=== PATIENT | female | born 2005 | race Caucasian/White ===

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

== ENCOUNTER 2023-09-15 17:26 | Emergency (ER) | payer MEDICAID, SELFPAY ==
[2023-09-15 17:27] VITALS: BP 136/116; PULSE 87; RESP 18; TEMP 36.1; O2SAT 100; BMI 21.9
--- NOTE | 2023-09-15 17:44 | EX.ED.VIS.HA ---
HPI History of Present Illness Chief Complaint: Headache Informant: patient Onset/Context/Timing Onset: Days (5) Context: Gradual Timing: Continuous Quality -Headache: Positive for Similar Prior Headaches Location: Right side of head and left eye Worsened by: Nothing Relieved by: Nothing Associated Symptoms/Injury Associated Symptoms: Positive for Nausea and Visual Changes; Negative for Fever, Vomiting, Sore Throat, Sinus Pressure, Numbness, Tingling, Preceding Aura or Photophobia Narrative Narrative: Patient presents with a headache that has been getting worse over the past 5 days. Patient states it has been constant. Patient states it feels similar to prior migraine headaches. Patient states she has had a decrease in her vision because of the headaches. Patient states that is also consistent with prior migraine headaches. Patient states her pain is mainly on the right but goes into her left eye. Patient describes her pain as throbbing. Patient states nothing makes it better nothing makes it worse. Patient does admit to some tingling but denies any weakness. Patient admits to some nausea but denies any vomiting. [facility] Medical History 41 weeks gestation of Anemia affecting Encounter for induction of labor High risk teen Migraines Rh negative status during (spontaneous vaginal delivery) Tonsillectomy planned Home Medications cephalexin 500 mg capsule 500 mg PO Q6 #40 CAPSULES 10/27/22 [Rx Last Taken Unknown] Allergy/AdvReac Type Severity Reaction Status Date / Time No Known Allergies Allergy Verified 09/15/23 17:29 Surgical History [place] teeth extracted Social History Smoking Status: Former smoker ROS ROS ED Constitutional Constitutional ED: Denies chills or fever(s) Eyes Eyes: Reports change in vision; Denies blurry vision ENT ENT ED: Denies rhinorrhea or sore throat Cardiovascular Cardiovascular: Denies chest pain or palpitations Respiratory/Chest Respiratory/Chest: Denies cough or dyspnea Gastrointestinal Gastrointestinal: Reports nausea; Denies vomiting Genitourinary Genitourinary ED: Denies dysuria or hematuria Musculoskeletal Musculoskeletal: Denies back pain or neck pain Integumentary Denies abscess or rash Neurologic Neurologic: Reports headache(s); Denies weakness Allergic/Immunologic Allergic/Immunologic ED: Denies mouth swelling or urticaria EXAM Physical Exam Const Vital Signs: 09/15/23 17:27 09/15/23 19:22 09/15/23 19:30 Temperature 97 F L 97.9 F Temperature Source Temporal Pulse Rate 87 58 L 58 L Respiratory Rate 18 18 18 Blood Pressure 136/116 H 108/64 108/64 Blood Pressure Mean 122 78 78 Pulse Ox 100 98 100 Oxygen Delivery Method Room Air Room Air Positive well nourished and well developed General Appearance ED: well developed and NAD HEENT Reports normocephalic and moist mucous membranes atraumatic Neck supple, no meningeal signs and no JVD Resp normal respiratory effort and clear to auscultation bilaterally Cardio regular rate and regular rhythm GI non-tender and non-distended Extremity normal to inspection and full ROM Neuro oriented x3, CN's II-XII intact bilaterally and no sensory deficits noted Jem Coma Scale: document GCS findings Spontaneous Obeys Commands Oriented 15 Sensorium / Orientation: awake and alert Speech: speech normal Motor Exam: strength 5/5 throughout Psych mental status grossly normal MDM MDM MDM Narrative Medical decision making narrative: This is similar to patient's prior migraine headaches. Visual acuity will be obtained. Patient was given IV fluids, Reglan, and Benadryl. Treatment and Re-Evaluation Narrative: Visual acuity was 20/30 in the right eye, 20/50 in the left eye, and 20/50 with both eyes. Patient was feeling better on reevaluation. Patient was instructed to rest in a dark quiet room. Patient was instructed to drink plenty of fluids. Patient was instructed to follow-up with her primary care physician in 5 to 7 days. Patient understood and was agreeable with the plan. All questions were answered. Discharge Plan Triage Chief Complaint: Headache ED Provider: Keo Reich Dx/Rx/DC Orders Clinical Impression: Headache, migraine, Alteration in vision Instructions: ED, Migraine (Classical) Prescriptions: No Action cephalexin [cephalexin] 500 mg capsule 500 mg PO Q6 Qty: 40 0RF Primary Care Provider: Care Physician,No Primary Referrals: Adelfo Schmidt MD [Med Staff - [employer]] - 5-7 Days Care Physician,No Primary [Primary Care Provider] - Disposition Disposition: Home, Self Care
[2023-09-15] MEDS: 0.9% Normal Saline (1000mL) 1,000 ML 999 ML IV (17:59)
[2023-09-15] MEDS: DiphenhydrAMINE 50 MG/ML Syringe 25 MG IV (17:59)
[2023-09-15] MEDS: Metoclopramide 10 MG/2 ML Vial IV (17:59)
[2023-09-15 19:22] VITALS: BP 108/64; PULSE 58; RESP 18; O2SAT 98
[2023-09-15 19:30] VITALS: BP 108/64; PULSE 58; RESP 18; TEMP 36.6; O2SAT 100
== END 2023-09-15 19:39 | disposition home or self-care (01) ==
PROVIDERS: Emergency Provider Emergency Medicine; Visit Provider Emergency Medicine
DX: G43.909 Migraine, unspecified, not intractable, without status migrainosus (principal); Z87.891 Personal history of nicotine dependence; R11.0 Nausea; H53.8 Other visual disturbances
CPT/HCPCS: 96361; 96374; 96375; 99284; A4216

== ENCOUNTER 2023-11-04 18:49 | Emergency (ER) | payer MEDICAID, SELFPAY ==
[2023-11-04 18:49] VITALS: BP 96/65; PULSE 88; RESP 12; O2SAT 100
[2023-11-04 18:50] VITALS: BP 99/62; PULSE 92; RESP 12; TEMP 36.8; O2SAT 100; BMI 20.4
[2023-11-04 18:51] VITALS: BP 99/62; PULSE 92; RESP 12; TEMP 36.6; O2SAT 100
--- NOTE | 2023-11-04 19:15 | EX.ED.DYSGE1 ---
HPI History of Present Illness Chief Complaint: Abd Pain Detail of Chief Complaint: Fever and sore throat and occasional abdominal pain Informant: patient Narrative Narrative: Patient presents the emergency department complaint of fever and sore throat is her main complaint. Patient also states that she has had off-and-on abdominal pain for over a month. Currently she has no abdominal pain. She had a temperature of 102 at home today. She started having a sore throat last evening. Patient denies significant cough. She denies urinary symptoms. Patient tells me that she was in September of this year and then had some bleeding and passed some tissue and never followed up after her first appointment with [facility]. Patient continues to have some intermittent vaginal bleeding. [facility] Medical History 41 weeks gestation of Anemia affecting Encounter for induction of labor High risk teen Migraines Rh negative status during (spontaneous vaginal delivery) Tonsillectomy planned Home Medications ?Medication ?Instructions ?Recorded ?Last Taken ?Type sertraline 25 mg tablet 25 mg PO DAILY 11/04/23 Unknown History Allergy/AdvReac Type Severity Reaction Status Date / Time No Known Allergies Allergy Verified 11/04/23 18:49 Surgical History [place] teeth extracted Social History Smoking Status: Former smoker ROS ROS ED Review of Systems ROS Unobtainable: other Constitutional Constitutional ED: Reports fever(s) and lethargy; Denies chills, sweats or weight loss Eyes Eyes: Denies blurry vision, change in vision or diplopia ENT ENT ED: Reports sore throat; Denies rhinorrhea Cardiovascular Cardiovascular: Denies chest pain, orthopnea or racing heartbeat Respiratory/Chest Respiratory/Chest: Denies cough, dyspnea, dyspnea on exertion, orthopnea or sputum Gastrointestinal Gastrointestinal: Reports abdominal pain; Denies diarrhea, nausea or vomiting Genitourinary Genitourinary ED: Denies dysuria, hematuria or urinary frequency Musculoskeletal Musculoskeletal: Denies arthralgias, back pain, myalgias or neck pain Integumentary Denies abscess, Abrasions or rash Neurologic Neurologic: Denies headache(s) or weakness Psychiatric Psychiatric: Denies anxiety, depression or suicidal thoughts Endocrine Endocrinology: Denies polydipsia, polyphagia or polyuria Hematologic/Lymphatic Hematologic/Lymphatic: Denies easy bleeding, easy bruising or lymphadenopathy Allergic/Immunologic Allergic/Immunologic ED: Denies mouth swelling, tongue swelling or urticaria EXAM Physical Exam Const Vital Signs: 11/04/23 18:49 11/04/23 18:50 11/04/23 18:51 Temperature 98.2 F 97.8 F Temperature Source Temporal Oral Pulse Rate 88 92 92 Respiratory Rate 12 12 12 Blood Pressure 96/65 99/62 99/62 Blood Pressure Mean 75 74 74 Pulse Ox 100 100 100 Oxygen Delivery Method Room Air Room Air 11/04/23 20:00 11/04/23 21:00 Temperature 97.6 F L 97.6 F L Temperature Source Oral Oral Pulse Rate 87 85 Respiratory Rate 15 14 Blood Pressure 99/61 97/68 Blood Pressure Mean 73 77 Pulse Ox 99 99 Oxygen Delivery Method Room Air Room Air Positive well nourished and well developed General Appearance ED: well developed and NAD HEENT Reports TM's clear and moist mucous membranes HEENT Narrative: Mild pharyngeal erythema normocephalic and atraumatic; Negative for trauma or tenderness Tympanic Membrane ED: Yes TM's clear Eyes PERRL and EOMs intact bilaterally General Eye ED: Negative for pale conjunctiva or scleral icterus Neck no lymphadenopathy, supple and no JVD General: Negative for tenderness Chest Wall inspection of chest normal and palpation of chest normal Chest: Negative for tenderness Resp normal respiratory effort and clear to auscultation bilaterally Effort and Inspection: Negative for respiratory distress or pain with movement Auscultation: Negative for rhonchi, wheezes or diminished lung sounds Cardio regular rate, regular rhythm, S1 normal heart sound, S2 normal heart sound and no murmurs Peripheral Pulses: pulses 2+ throughout GI normal to inspection, nondistended, normoactive bowel sounds, soft to palpation, non-tender, non-distended and no masses Back/Spine no CVA tenderness and no thoracic nor lumbar tenderness Extremity normal to inspection General Extremety ED: Negative for edema General Extremity: Negative for edema Neuro oriented x3, CN's II-XII intact bilaterally, no sensory deficits noted and gait normal Sensorium / Orientation: awake, alert, oriented to person, oriented to place and oriented to time Motor Exam: strength 5/5 throughout and strength abnormal Psych mental status grossly normal Skin no rashes or lesions noted and no wounds MDM MDM MDM Narrative Medical decision making narrative: Presents with fever and sore throat as well as intermittent abdominal pain for about a month. Patient tells me she had a miscarriage in September. Currently has no abdominal pain. IV line established. CBC with differential obtained showed a white count of 9.5 with hemoglobin 9.9 and platelet count of 291. Chemistries unremarkable. Chemistries unremarkable and hCG was 5. Urinalysis was normal. Rapid strep as well as COVID flu and RSV were negative. Discussed results with patient. Also discussed case with Dr. Mays who is covering for [facility]. She wanted to have patient follow-up with their office and I advised patient of this as her quant is not quite back to 0 yet and will require a repeat test. Patient's abdominal exam is benign and she has no pain currently. I do not feel any imaging is indicated. Lab Data Attestation: I reviewed the patient's lab results. Labs: Laboratory Results - last 24 hr 11/04/23 11/04/23 19:08 20:00 WBC 9.5 RBC 4.00 L Hgb 9.9 L Hct 32.1 L MCV 80.3 L MCH 24.8 L MCHC 30.8 L RDW Std Deviation 39.7 RDW Coeff of Katie 13.5 Plt Count 291 MPV 9.6 Immature Gran % (Auto) 0.400 Neut % (Auto) 71.5 H Lymph % (Auto) 15.2 L [place] % (Auto) 11.2 H Eos % (Auto) 0.9 Baso % (Auto) 0.8 Absolute Neuts (auto) 6.8 Absolute Lymphs (auto) 1.44 Nucleated RBC % 0 Sodium 136 Potassium 3.4 L Chloride 106 Carbon Dioxide 23.0 Anion Gap 7 BUN 10 Creatinine 0.80 Estim Creat Clear Calc 98.46 Est GFR (MDRD) Af Amer 117 Est GFR (MDRD) Non-Af 97 BUN/Creatinine Ratio 12.5 Glucose 109 H Calcium 8.6 HCG, Quant 5 H Urine Color Yellow Urine Clarity Clear Urine pH 6.0 Ur Specific [place] 1.010 Urine Protein Negative Urine Glucose (UA) Normal Urine Ketones Negative Urine Occult Blood 150 H Urine Nitrite Negative Urine Bilirubin Negative Urine Urobilinogen Normal Ur Leukocyte Esterase Negative Urine RBC 0 SEEN Urine WBC 0 SEEN Ur Squamous Epith Cells 0 SEEN Urine Bacteria 0 SEEN Urine Mucus 0 SEEN Discharge Plan Triage Chief Complaint: Abd Pain ED Provider: Matthew Ku Dx/Rx/DC Orders Clinical Impression: Acute viral syndrome Instructions: ED Viral Syndrome (Adult), ED URI, Viral, No Abx (Adult) Prescriptions: No Action sertraline 25 mg tablet 25 mg PO DAILY Primary Care Provider: Connie Escalera Referrals: Care Physician,No Primary [Non-Staff] - Activity Restrictions/Additional Instructions: Follow-up with [facility] within the next week. They will reach out to you to set up an appointment and if you do not hear from them please reach out to them. Print Language: Japanese Disposition Disposition: Home, Self Care
[2023-11-04] MEDS: 0.9% Normal Saline (1000mL) 1,000 ML 150 ML IV (19:23)
[2023-11-04 19:24] LABS: Absolute Lymphocyte Count 1.44 X10^3/uL (0.83-4.51); Absolute Neutrophil Count 6.8 X10^3/uL (2.0-7.7); Basophil# 0.08 X10^3/uL; Basophil% 0.8 % (0-1); Eosinophil# 0.09 X10^3/uL; Eosinophils% 0.9 % (0-5); Hematocrit 32.1 % (37-47); Hemoglobin 9.9 g/dL (12.0-15.0); Lymphocyte # 1.44 X10^3/ul (0.83-4.51); Lymphocyte % 15.2 % (19-41); Mean Corp Hgb Conc 30.8 g/dL (32-36); Mean Corpuscular Hgb 24.8 pg (27.0-32.0); Mean Corpuscular Volume 80.3 fL (81-99); Mean Platelet Vol. 9.6 fl (6.2-12.0); Monocyte# 1.06 X10^3/uL; Monocyte% 11.2 % (0-10); NRBC Flagged by Analyzer 0 % (0-5); Neutrophil # 6.77 X10^3/uL (2.7-7.7); Neutrophil % 71.5 % (47-70); Platelet Count 291 K/mm3 (150-450); RBC Distribution Width CV 13.5 % (11.6-14.6); RBC Distribution Width SD 39.7 fl (35.1-43.9); White Blood Count 9.5 K/mm3 (4.4-11.0)
[2023-11-04 19:42] LABS: Anion Gap 7 (5-15); BUN 10 mg/dL (7-18); BUN/Creat Ratio 12.5 RATIO (10-20); Calcium,Total 8.6 mg/dL (8.5-10.1); Chloride 106 mmol/L (98-107); EST Glomerular Filtration Rate 97 mL/min (>60); Est Glom Filt Rate - Afr Amer 117 mL/min (>60); Estimated Creatinine Clearance 98.46 ml/min; Glucose 109 mg/dL (74-106); Potassium 3.4 mmol/L (3.5-5.1); Sodium Level 136 mmol/L (136-145)
[2023-11-04 19:46] LABS: hCG Titer Quant., Serum 5 mIU/mL (1-3)
[2023-11-04 20:00] VITALS: BP 99/61; PULSE 87; RESP 15; TEMP 36.4; O2SAT 99
[2023-11-04 20:05] LABS: Bacteria 0 SEEN /hpf (None Seen); Mucous, Urine 0 SEEN /hpf (<or=2+); Red Blood Cells-Urine 0 SEEN /hpf (0-5); Squamous Epithelial Cells - UA 0 SEEN /hpf (5-10); White Blood Cells 0 SEEN /hpf (0-5)
[2023-11-04 20:18] LABS: Color, Urine Yellow (Yellow); Glucose, Dipstick Normal (Normal); Ketone-Dipstick Negative (Negative); Leukocyte Esterase-Dipstick Negative /ul (Negative); Nitrite-Dipstick Negative (Negative); Occult Blood-Urine 150 /ul (Negative); Protein-Dipstick Negative (Negative); Urine Bilirubin Dipstick Negative (Negative); Urine Clarity Clear (Clear); Urine Urobilinogen Normal (Normal)
[2023-11-04 21:00] VITALS: BP 97/68; PULSE 85; RESP 14; TEMP 36.4; O2SAT 99
[2023-11-04 21:26] VITALS: BP 100/58; PULSE 80; RESP 15; TEMP 36.6; O2SAT 100
== END 2023-11-04 21:27 | disposition home or self-care (01) ==
PROVIDERS: Emergency Provider Emergency Medicine; PCP Nurse Practitioner Family; Visit Provider Emergency Medicine
DX: B34.9 Viral infection, unspecified (principal); N93.9 Abnormal uterine and vaginal bleeding, unspecified; Z87.891 Personal history of nicotine dependence; J02.9 Acute pharyngitis, unspecified; R50.9 Fever, unspecified; Z79.899 Other long term (current) drug therapy
CPT/HCPCS: 80048; 81001; 84702; 85025; 87631; 87651; 96360; 96361; 99283; J7030; A4216